=== PATIENT | male | born 1995 | race Caucasian/White ===

== ENCOUNTER 2018-06-04 11:42 | Emergency (ER) | payer MEDICAID ==
[2018-06-04 11:48] VITALS: RESP 18
[2018-06-04 11:52] VITALS: BMI 28.5
--- NOTE | 2018-06-04 11:59 | C.PDOC ---
History Of Present Illness 22 year old male is brought to the ED by ambulance for evaluation after patient had episodes of vomiting while at outpatient psychiatric counseling prior to arrival. Patient states he feels better. He denies fever, chills, abdominal pain. Time Seen by Provider: 06/04/18 11:43 Chief Complaint (Nursing): Abdominal Pain History Per: Patient History/Exam Limitations: no limitations Onset/Duration Of Symptoms: Mins Current Symptoms Are (Timing): Better Quality Of Discomfort: denies: "Pain" Associated Symptoms: Nausea, Vomiting. denies: Fever, Chills Past Medical History Reviewed: Historical Data, Nursing Documentation, Vital Signs Vital Signs: Last Vital Signs Temp 97.9 F 06/04/18 11:43 Pulse 87 06/04/18 11:43 Resp 18 06/04/18 11:43 BP 101/69 06/04/18 11:43 Pulse Ox 98 06/04/18 11:43 - Medical History PMH: Anxiety, HTN, Schizophrenia Denies: Diabetes, Hepatitis, HIV, Seizures, Sexually Transmitted Disease Surgical History: No Surg Hx - [facility] Procedures INDIVID PSYCHOTHERAP NEC (07/29/14) INJECT/INFUSE NEC (09/22/13) OTHER GROUP THERAPY (07/29/14) PSYCHIA INTERV/EVAL NEC (10/17/14) PSYCHIAT DRUG THERAP NEC (01/28/15) Family History: States: Unknown Family Hx - Social History Hx Tobacco Use: No Hx Alcohol Use: No Hx Substance Use: No (occ. marijuana) - Immunization History Hx Tetanus Toxoid Vaccination: No Hx Influenza Vaccination: No Hx Pneumococcal Vaccination: No Review Of Systems Constitutional: Negative for: Fever, Chills Gastrointestinal: Positive for: Vomiting. Negative for: Abdominal Pain Physical Exam - Physical Exam Appears: Non-toxic, No Acute Distress Skin: Normal Color, Warm, Dry Head: Atraumatic, Normacephalic Eye(s): bilateral: Normal Inspection Oral Mucosa: Moist Neck: Supple Chest: Symmetrical, No Deformity, No Tenderness Cardiovascular: Rhythm Regular, No Murmur Respiratory: Normal Breath Sounds, No Rales, No Rhonchi, No Wheezing Gastrointestinal/Abdominal: Soft, No Tenderness, No Guarding, No Rebound Extremity: Normal ROM, Capillary Refill (less than 2 seconds ) Neurological/Psych: Oriented x3, Normal Speech, Normal Cognition ED Course And Treatment O2 Sat by Pulse Oximetry: 98 (on RA) Pulse Ox Interpretation: Normal Progress Note: Zofran PO given. On reassessment, patient is resting comfortably, showing no signs of distress and reports an improvement in his symptoms. Patient is stable for discharge and is advised to follow up with his PMD within 1-2 days for further evaluation. Advised to return to the ED if symptoms persist or worsen. Reassessment Condition: Improved Disposition Counseled Patient/Family Regarding: Diagnosis - Disposition [facility] [Outside] Disposition: HOME/ ROUTINE Disposition Time: 12:50 Condition: STABLE Additional Instructions: Follow up with PMD for further evaluation Instructions: Nausea and Vomiting, Adult (DC) Forms: [facility] (Sinhala) - POA Present On Arrival: None - Clinical Impression Clinical Impression: Vomiting
[2018-06-04 13:12] VITALS: BP 122/78; TEMP 97.8
[2018-06-04 13:14] VITALS: PULSE 81
[2018-06-04 14:14] VITALS: O2SAT 98
== END 2018-06-04 14:01 | disposition home or self-care (01) ==
LOC: C.ER 11:42
DX: R11.10 Vomiting, unspecified (principal)

== ENCOUNTER 2018-08-04 10:01 | Inpatient (IN) | payer MEDICAID ==
[2018-08-04 10:01] VITALS: BMI 28.5
--- NOTE | 2018-08-04 10:06 | C.PDOC ---
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 Patient lives in a half-way and is compliant with his medication. He states that he normally hears voices once in a while, but is now hearing them more than usual. Patient denies suicidal and homicidal ideation. 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) History/Exam Limitations: clinical condition Onset/Duration Of Symptoms: Days Current Symptoms Are (Timing): Still Present Associated Symptoms: denies: Suicidal Thoughts, Other (homicidal ideation) Additional History Per: Patient, EMS <Gayathri Wetzel - Last Filed: 08/04/18 12:38> <Makayla Brand - Last Filed: 08/12/18 21:32> Time Seen by Provider: 08/04/18 10:05 Past Medical History Reviewed: Historical Data, Nursing Documentation, Vital Signs - Medical History PMH: Anxiety, HTN, Hyperlipidemia, Schizophrenia Denies: Diabetes, Hepatitis, HIV, Seizures, Sexually Transmitted Disease Surgical History: No Surg Hx - [facility] Procedures INDIVID PSYCHOTHERAP NEC (07/29/14) INJECT/INFUSE NEC (09/22/13) OTHER GROUP THERAPY (07/29/14) PSYCHIA INTERV/EVAL NEC (10/17/14) PSYCHIAT DRUG THERAP NEC (01/28/15) Family History: States: Unknown Family Hx - Social History Hx Tobacco Use: No Hx Alcohol Use: No Hx Substance Use: No (occ. marijuana) - Immunization History Hx Tetanus Toxoid Vaccination: No Hx Influenza Vaccination: No Hx Pneumococcal Vaccination: No <Gayathri Wetzel - Last Filed: 08/04/18 12:38> Vital Signs: Last Vital Signs Temp 98.3 F 08/04/18 10:06 Pulse 98 H 08/04/18 10:06 Resp 18 08/04/18 10:06 BP 128/74 08/04/18 10:06 Pulse Ox 97 08/04/18 10:06 - [facility] Procedures INDIVID PSYCHOTHERAP NEC (07/29/14) INJECT/INFUSE NEC (09/22/13) OTHER GROUP THERAPY (07/29/14) PSYCHIA INTERV/EVAL NEC (10/17/14) PSYCHIAT DRUG THERAP NEC (01/28/15) <Makayla Brand - Last Filed: 08/12/18 21:32> Review Of Systems Constitutional: Negative for: Fever, Chills, Weakness Cardiovascular: Negative for: Chest Pain, Palpitations Respiratory: Negative for: Cough, Shortness of Breath Gastrointestinal: Negative for: Nausea, Vomiting, Diarrhea Musculoskeletal: Negative for: Back Pain Skin: Negative for: Rash Neurological: Negative for: Weakness, Numbness, Dizziness Psych: Positive for: Psychosis (hearing voices). Negative for: Suicidal ideation <Gayathri Wetzel - Last Filed: 08/04/18 12:38> Physical Exam - Physical Exam Appears: Well, Non-toxic, No Acute Distress Skin: Normal Color, Warm, Dry Head: Atraumatic, Normacephalic Neck: Normal ROM, Supple Chest: Symmetrical, No Deformity Cardiovascular: Rhythm Regular, No Murmur Respiratory: No Accessory Muscle Use, Other (NARD) Gastrointestinal/Abdominal: Soft, No Tenderness Extremity: Capillary Refill (<2 seconds) Extremity: Bilateral: Atraumatic, Normal Color And Temperature Pulses: Left Radial: Normal, Right Radial: Normal Neurological/Psych: Oriented x3, Normal Speech, Normal Cognition, Other (calm,cooperative, pleasant, no acute intoxication, no active hallucinations) <Gayathri Wetzel - Last Filed: 08/04/18 12:38> ED Course And Treatment Progress Note: 10:08: Crisis evaluation for patient was ordered. <Gayathri Wetzel - Last Filed: 08/04/18 12:38> - Laboratory Results Result Diagrams: 08/04/18 13:53 08/04/18 13:53 Lab Results: Total Bilirubin 0.3 mg/dL (0.2-1.3) 08/04/18 13:53 AST 35 U/L (17-59) 08/04/18 13:53 ALT 27 U/L (21-72) 08/04/18 13:53 Alkaline Phosphatase 93 U/L (38-126) 08/04/18 13:53 Total Protein 7.1 g/dL (6.3-8.3) 08/04/18 13:53 Albumin 4.1 g/dL (3.5-5.0) 08/04/18 13:53 Globulin 3.0 gm/dL (2.2-3.9) 08/04/18 13:53 Albumin/Globulin Ratio 1.4 (1.0-2.1) 08/04/18 13:53 Urine Color Straw (YELLOW) 08/04/18 13:53 Urine Clarity Hazy (Clear) 08/04/18 13:53 Urine pH 7.0 (5.0-8.0) 08/04/18 13:53 Ur Specific [place] 1.010 (1.003-1.030) 08/04/18 13:53 Urine Protein Negative mg/dL (NEGATIVE) 08/04/18 13:53 Urine Glucose (UA) Normal mg/dL (Normal) 08/04/18 13:53 Urine Ketones Negative mg/dL (NEGATIVE) 08/04/18 13:53 Urine Blood Negative (NEGATIVE) 08/04/18 13:53 Urine Nitrate Negative (NEGATIVE) 08/04/18 13:53 Urine Bilirubin Negative (NEGATIVE) 08/04/18 13:53 Urine Urobilinogen Normal mg/dL (0.2-1.0) 08/04/18 13:53 Ur Leukocyte Esterase Neg Luis Armando/uL (Negative) 08/04/18 13:53 Urine WBC (Auto) < 1 /hpf (0-5) 08/04/18 13:53 Progress Note: 3:00PM Patient medically cleared. Pending crisis. 3:30PM- Patient accepted by Dr. Foster for psychiatric admission for paranoid schizophrenia. <Makayla Brand - Last Filed: 08/12/18 21:32> Progress - Re-Evaluation Re-evaluation Note: 08/04/18 12:38 EXAM UNCH. D/W CRISIS, PT TO BE ADMITTED PARANOID SCHIZOPHRENIA AFTER MED CLEARANCE 08/04/18 12:38 LABS PENDING <Gayathri Wetzel - Last Filed: 08/04/18 12:38> Disposition - Disposition Disposition Time: 13:00 <Gayathri Wetzel - Last Filed: 08/04/18 12:38> - Disposition Disposition Time: 15:28 <Makayla Brand - Last Filed: 08/12/18 21:32> - Disposition Disposition: HOSPITALIZED Condition: STABLE - Clinical Impression Clinical Impression: Paranoid schizophrenia - Scribe Statement The provider has reviewed the documentation as recorded by the Scribe (Tasha Clark) All medical record entries made by the Scribe were at my direction and personally dictated by me. I have reviewed the chart and agree that the record accurately reflects my personal performance of the history, physical exam, medical decision making, and the department course for this patient. I have also personally directed, reviewed, and agree with the discharge instructions and disposition. <Gayathri Wetzel - Last Filed: 08/04/18 12:38> Physician Patient Turnover Patient Signed Over To: Makayla Brand Handoff Comments: LABS, DISPO <Gayathri Wetzel - Last Filed: 08/04/18 12:38>
[2018-08-04 13:57] LABS: BASO # 0.1 K/uL (0.0-0.2); EOS # 0.3 K/uL (0.0-0.7); EOS % 3.7 % (0.0-4.0); HEMOGLOBIN 14.4 g/dL (12.0-18.0); LYMPH # 2.3 K/uL (1.0-4.3); LYMPH % 30.5 % (20.0-40.0); MEAN CELL VOLUME 83.8 fL (80.0-94.0); MEAN CORPUSCULAR HEMOGLOBIN 28.1 pg (27.0-31.0); MEAN CORPUSCULAR HGB CONC 33.5 g/dL (33.0-37.0); MEAN PLATELET VOLUME 8.1 fL (7.2-11.7); MONO # 0.6 K/uL (0.0-0.8); MONO % 8.3 % (0.0-10.0); NEUT # 4.3 K/uL (1.8-7.0); NEUT % 56.5 % (50.0-75.0); NRBC % 0.1 % (0.0-2.0); RBC 5.13 Mil/uL (4.40-5.90); RED CELL DISTRIBUTION WIDTH 13.7 % (11.5-14.5); WHITE BLOOD COUNT 7.7 K/uL (4.8-10.8)
[2018-08-04 14:01] LABS: URINE BILIRUBIN NEGATIVE (NEGATIVE); URINE BLOOD NEGATIVE (NEGATIVE); URINE CLARITY Hazy (Clear); URINE COLOR Straw (YELLOW); URINE GLUCOSE (UA) NORMAL (Normal); URINE LEUKOCYTE ESTERASE NEG Leu/uL (Negative); URINE PROTEIN NEGATIVE (NEGATIVE); URINE UROBILINOGEN NORMAL mg/dL (0.2-1.0)
[2018-08-04 14:09] LABS: ALB/GLOB RATIO 1.4 (1.0-2.1); ALBUMIN 4.1 g/dL (3.5-5.0); ALT/SGPT 27 U/L (21-72); AST/SGOT 35 U/L (17-59); BLOOD UREA NITROGEN 17 mg/dL (9-20); CALCIUM 9.4 mg/dl (8.6-10.4); GFR NON-AFRICAN AMERICAN > 60
[2018-08-04 14:21] LABS: BARBITURATES, UR NEGATIVE (NEGATIVE); BENZODIAZEPINES, UR NEGATIVE (NEGATIVE); OPIATES, UR NEGATIVE (NEGATIVE); PHENCYCLIDINE, UR NEGATIVE (NEGATIVE)
--- NOTE | 2018-08-04 17:36 | PCM.BM ---
<Blossom Larkin - Last Filed: 08/04/18 17:33> Treatment Plan Problems - Problems identified on initial assessmt Command Auditory Hallucination Date Initiated: 08/04/18 Time Initiated: 17:34 Assessment reference: NA Status: Active Altered thought procee Date Initiated: 08/04/18 Time Initiated: 17:35 Assessment reference: NA Status: Active Social Isolation Date Initiated: 08/04/18 Time Initiated: 17:35 Assessment reference: NA Status: Active Treatment assets and liabiliti Patient Assests: cooperative, motivated, ADL independent, good support system - Milieu Protocol Maintain good personal hygiene: daily Encourage regular showers, daily Remind patient to perform daily oral care, daily Assist patient to perform ADL's Conduct patient checks and document Observation sheet: Q15 minutes (safety) Maintain personal safety: every shift Educate patient to report safety concerns to staff, every shift Monitor environment for contraband/sharps Medication safety: Monitor for expected outcome, potential side effects: every shift, Assess barriers to learning: every shift, Assess readiness for medication education: every shift <William Foster - Last Filed: 08/06/18 10:51> - Diagnosis (1) Schizoaffective disorder Status: Acute Interventions: 08/06/18 10:51 * Assess/adjust medications daily and /or as needed * See patient on an individual basis 7x/week to assess status of hallucinations * Discuss risks, benefits, side effects and alternatives of medications * <Kiara Viramontes - Last Filed: 08/06/18 11:42> Family Contact Family involvement: Famliy/SO not involved - Goals for Treatment Patient goals for treatment: "I want to go home." Discharge/Continuing Care - Education Needs Education Needs: Patient Medication, Patient Coping Skills - Discharge Discharge Criteria: Tolerates medication w/o severe side effects, Reduction of target symptoms Discharge to:: Intermediate - Treatment Team Participation Discussed with Family/SO: No Was Patient/Family/SO present at Treatment Team Meeting: Yes
[2018-08-04] MEDS: Propranolol 60 mg ER Cap PO SCH (22:23)
[2018-08-05] MEDS: Levothyroxine 50 MCG TAB PO SCH (07:03)
[2018-08-05] MEDS: Pantoprazole 40 mg EC Tab PO SCH ×2 (09:09→18:19)
[2018-08-05] MEDS: Propranolol 60 mg ER Cap PO SCH ×2 (09:10→18:19)
--- NOTE | 2018-08-05 10:16 | PCM.PSYCH ---
Initial Psychiatric Evaluation - Initial Psychiatric Evaluation Type of Admission: Voluntary Legal Status: Capacity Chief Complaint (in patient's own words): I was hearing voices.'' History of Present Illness and Precipitating Events: Patient is a 22y/o male, who came to the ED in a disorganized behavior and auditory hallucinations command type to hurt others. As per the chart patient has a long history of schizophrenia. He has history of multiple inpatient psychiatric hospitalizations he was last discharged from [facility] 4 months ago after staying there for almost 1-1/2-year. Patient reports that [facility]. As per the patient since 2 weeks he is constantly hearing voices telling him to hurt others. He informed the staff and he was sent to the [facility] [place] for further evaluation. He appeared very disorganized and internally preoccupied. He remained a poor historian and superficially cooperative but guarded about the details. He was paranoid and delusional during the interview. He reports of auditory hallucinations and paranoia. He reports at times irritability, agitation and racing thoughts. He also reports poor sleep. However he denies any drinking or any substance abuse. He denies any past history of suicidal ideation or any suicide attempt. Past medical history Hypertension Hypothyroidism Hypercholesterolemia Current Medications: Active Medications Generic Name Dose Route Start Last Admin Trade Name Freq PRN Reason Stop Dose Admin Clonazepam 0.5 mg 08/05/18 10:00 08/05/18 09:09 Klonopin PO 0.5 mg BID SANTY Administration Clozapine 200 mg 08/05/18 10:00 08/05/18 09:09 Clozaril PO 200 mg DAILY SANTY Administration Clozapine 300 mg 08/04/18 22:00 08/04/18 22:23 Clozaril PO 300 mg HS SANTY Administration Ezetimibe 10 mg 08/05/18 22:00 Zetia PO HS SANTY Hydroxyzine HCl 25 mg 08/04/18 18:40 Atarax PO Q6 PRN Anxiety Influenza Virus Vaccine 60 mcg 08/07/18 10:00 Flucelvax Quad 6020-0234 Syr IM 08/07/18 10:01 .ONCE ONE Levothyroxine Sodium 50 mcg 08/05/18 06:30 08/05/18 07:03 Synthroid PO 50 mcg DAILY@0630 SNATY Administration Pantoprazole Sodium 40 mg 08/05/18 10:00 08/05/18 09:09 Protonix Ec Tab PO 40 mg BID SANTY Administration Propranolol HCl 60 mg 08/04/18 21:45 08/05/18 09:10 Inderal La PO 60 mg BID SANTY Administration Rosuvastatin Calcium 5 mg 08/04/18 22:00 08/04/18 22:23 Crestor PO 5 mg HS SANTY Administration Trazodone HCl 50 mg 08/04/18 18:41 Desyrel PO HS PRN Insomnia Past Psychiatric History - Past Psychiatric History Previous Treatment History: Inpatient Pertinent Medical Hx (Current Medical&Sleep Prob, Allergies): Allergies Allergy/AdvReac Type Severity Reaction Status Date / Time No Known Allergies Allergy Verified 08/04/18 10:09 Clonazepam 0.5 mg PO ACD 08/04/18 Clozapine 200 mg PO BID 08/04/18 Divalproex [Depakote ER] 1,500 mg PO HS 08/04/18 Propranolol [Inderal LA] 80 mg PO BID 08/04/18 Review of Systems - Review of Systems All systems: reviewed and no additional remarkable complaints except - Psychiatric Psychiatric: Anxiety, Auditory Hallucinations, Irritability, Paranoia, Suicidal Ideation Mental Status Examination - Personal Presentation Personal Presentation: Looks stated age - Affect Affect: Constricted, Depressed - Motor Activity Motor Activity: Calm - Reliability in Providing Information Reliability in Providing Information: Poor, due to alteration in thoughts, Poor, due to altered mood - Speech Speech: Disorganized - Mood Mood: Depressed, Anxious - Formal Thought Process Formal Thought Process: Hallucinations, Delusions, Paranoia, Loosening of associations - Hallucinations/Delusions Hallucinations: Visual, Auditory Delusions: Persecution - Obsessions/Compulsions Obsessions: No Compulsions: No - Cognitive Functions Orientation: Person, Place, Situation, Time Sensorium: Alert Attention/Concentration: Attentive Abstract Thinking: [place] Estimate of Intelligence: Below average Judgement: Imparied, as evidence by: Poor judgement, Imparied, as evidence by: Lack of insight into illness - Risk Risk: Suicidal, Withdrawal, Diminished functioning - Strength & Assets Inventory Strength & Assets Inventory: Intelligence - Limitations Limitations: Living alone DSM 5 DX - DSM 5 DSM 5 Diagnosis: Schizoaffective disorder bipolar type - Recommended/Plan of Treatment Treatment Recommendations and Plan of Treatment: Schizoaffective disorder bipolar type Hypertension Hypothyroidism Hypercholesterolemia CBT Psycho education Supportive therapy and group therapy Continue Clozaril for psychosis Hold Depakote Hydroxyzine for anxiety Trazodone for insomnia Levothyroxine for hypothyroidism Klonopin for anxiety Propranolol for anxiety. - Smoking Cessation Smoking Cessation Initiated: No
[2018-08-06] MEDS: Levothyroxine 50 MCG TAB PO SCH (06:42)
[2018-08-06] MEDS: Pantoprazole 40 mg EC Tab PO SCH ×2 (10:33→17:01)
[2018-08-06] MEDS: Propranolol 60 mg ER Cap PO SCH ×2 (10:40→17:01)
--- NOTE | 2018-08-06 10:52 | PCM.PYCHPN ---
Psychiatric Progress Note - Psychiatric Progress Note Patient seen today, length of contact: 15 min Patient Chief Complaint: I was hearing voices.' Problems Identified/Issues Discussed: Patient was seen and evaluated, chart reviewed and discussed the staff. Patient remained disorganized, internally preoccupied. As per staff, he was found responding to internal stimuli. He reports irritability and agitation but he remained redirectable. He remained isolative and withdrawn and confined to his room. He is taking medication but denies any side effects. Supportive therapy was given Medication Change: Yes Medical Record Reviewed: Yes Mental Status Examination - Cognitive Function Orientation: Person, Place, Situation, Time Memory: Intact Attention: Poor Concentration: Poor Association: Loose Fund of Knowledge: Poor - Mood Mood: Anxious - Affect Affect: Broad - Speech Speech: Pressured - Formal Thought Process Formal Thought Process: Hallucinations, Delusions, Paranoia, Loosening of associations - Suicidal Ideation Suicidal Ideation: No - Homicidal Ideation Homicidal Ideation: No Goal/Treatment Plan - Goal/Treatment Plan Need for Continued Stay: Remain at risks for inpatient hospitalization Progress Toward Problem(s) and Goals/Treatment Plan: Schizoaffective disorder bipolar type Hypertension Hypothyroidism Hypercholesterolemia CBT Psycho education Supportive therapy and group therapy Continue Clozaril for psychosis Hold Depakote Hydroxyzine for anxiety Trazodone for insomnia Levothyroxine for hypothyroidism Klonopin for anxiety Propranolol for anxiety. - Smoking Cessation Smoking Cessation Initiated: No
[2018-08-07] MEDS: Levothyroxine 50 MCG TAB PO SCH (06:36)
[2018-08-07] MEDS ORDERED: Influenza Vaccine 60 mcg/0.5 mL SYR (4YR UP) IM ONE (10:00)
[2018-08-07] MEDS: Propranolol 60 mg ER Cap PO SCH ×2 (10:04→18:26)
[2018-08-07] MEDS: Pantoprazole 40 mg EC Tab PO SCH ×2 (10:04→17:45)
[2018-08-08 06:07] VITALS: RESP 20
[2018-08-08] MEDS: Levothyroxine 50 MCG TAB PO SCH (06:40)
[2018-08-08] MEDS: Propranolol 60 mg ER Cap PO SCH ×2 (09:23→17:23)
[2018-08-08] MEDS: Pantoprazole 40 mg EC Tab PO SCH ×2 (09:23→17:21)
[2018-08-09] MEDS: Levothyroxine 50 MCG TAB PO SCH (06:42)
[2018-08-09] MEDS: Pantoprazole 40 mg EC Tab PO SCH ×2 (10:10→17:29)
[2018-08-09] MEDS: Propranolol 60 mg ER Cap PO SCH ×2 (10:11→17:09)
[2018-08-10] MEDS: Levothyroxine 50 MCG TAB PO SCH (05:58)
[2018-08-10 06:44] VITALS: TEMP 98.2; O2SAT 97
[2018-08-10] MEDS: Pantoprazole 40 mg EC Tab PO SCH ×2 (09:45→18:03)
[2018-08-10] MEDS: Propranolol 60 mg ER Cap PO SCH ×2 (09:49→18:02)
--- NOTE | 2018-08-10 10:09 | PCM.PYCHDC ---
Mental Status Examination - Mental Status Examination Orientation: Person, Place, Situation, Time Memory: Intact Mood: Neutral Affect: Constricted Speech: Soft Attention: WNL Concentration: WNL Association: WNL Fund of Knowledge: WNL Formal Thought Process: No Impairment Description of patient's judgement and insight: good, fair Psychotic Thoughts and Behaviors: denies any AVH Suicidal Ideation: No Current Homicidal Ideation?: No Discharge Summary - Discharge Note Reason for Hospitalization: Patient is a 22y/o male, who came to the ED in a disorganized behavior and auditory hallucinations command type to hurt others. As per the chart patient has a long history of schizophrenia. He has history of multiple inpatient psychiatric hospitalizations he was last discharged from [facility] 4 months ago after staying there for almost 1-1/2-year. Patient reports that [facility]. As per the patient since 2 weeks he is constantly hearing voices telling him to hurt others. He informed the staff and he was sent to the [facility] for further evaluation. He appeared very disorganized and internally preoccupied. He remained a poor historian and superficially cooperative but guarded about the details. He was paranoid and delusional during the interview. He reports of auditory hallucinations and paranoia. He reports at times irritability, agitation and racing thoughts. He also reports poor sleep. However he denies any drinking or any substance abuse. He denies any past history of suicidal ideation or any suicide attempt. Consultations:: List each consultation separately and include: 1. Reason for request. 2. Findings. 3. Follow-up Summary of Hospital Course include:: 1. Description of specific treatment plan utilized for patients during their course of treatmen. 2. Summarize the time- course for resolution of acute symptoms and/or regressed behaviors. 3. Describe issues identified and worked on during hospitalization. 4. Describe medication utilized. 5. Describe medical problems identified and treated. 6. Reassessment of suicide risk Summary of Hospital Course: Patient is a 22y/o male, who came to the ED in a disorganized behavior and auditory hallucinations command type to hurt others. As per the chart patient has a long history of schizophrenia. He has history of multiple inpatient psychiatric hospitalizations he was last discharged from [facility] 4 months ago after staying there for almost 1-1/2-year. Patient reports that currently [facility] staying [facility]. As per the patient since 2 weeks he is constantly hearing voices telling him to hurt others. He informed the staff and he was sent to the [facility] for further evaluation. He appeared very disorganized and internally preoccupied. He remained a poor historian and superficially cooperative but guarded about the details. He was paranoid and delusional during the interview. He reports of auditory hallucinations and paranoia. He reports at times irritability, agitation and racing thoughts. He also reports poor sleep. However he denies any drinking or any substance abuse. He denies any past history of suicidal ideation or any barclay icide attempt. Past medical history Hypertension Hypothyroidism Hypercholesterolemia - Diagnosis (1) Schizoaffective disorder Current Visit: No Status: Acute - Final Diagnosis (DSM 5) Condition upon Discharge: STABLE DSM 5: Schizoaffective disorder bipolar type Hypertension Hypothyroidism Hypercholesterolemia Disposition: HOME/ ROUTINE Follow-up Treatment Plan: Schizoaffective disorder bipolar type Hypertension Hypothyroidism Hypercholesterolemia CBT Psycho education Supportive therapy and group therapy Continue Clozaril for psychosis Hold Depakote Hydroxyzine for anxiety Trazodone for insomnia Levothyroxine for hypothyroidism Klonopin for anxiety Propranolol for anxiety. Prescriptions/Medication Reconciliation: cloZAPine [Clozaril] 200 mg PO DAILY #30 tab cloZAPine [Clozaril] 300 mg PO HS #30 tab Gabapentin [Neurontin] 300 mg PO TID #90 cap Levothyroxine [Synthroid] 50 mcg PO DAILY@0630 #30 tab Pantoprazole [Protonix EC Tab] 40 mg PO BID #60 ect Rosuvastatin Calcium [Crestor] 5 mg PO HS #30 tab traZODone [Desyrel] 50 mg PO HS PRN #30 tab PRN Reason: Insomnia - Smoking Cessation Smoking Cessation Medication prescribed: No
[2018-08-10 16:08] VITALS: BP 128/73; PULSE 108
== END 2018-08-10 17:15 | disposition home or self-care (01) | DRG 430 ==
LOC: C.ER 10:01 → C.5E 15:28
PROVIDERS: ADMIT Psychiatry & Neurology Psychiatry; ATTEND Psychiatry & Neurology Psychiatry
PROC: GZ56ZZZ Individual Psychotherapy, Supportive (ICD-10-PCS; principal; 2018-08-04)
DX: F25.0 Schizoaffective disorder, bipolar type (principal); E03.9 Hypothyroidism, unspecified; E78.5 Hyperlipidemia, unspecified; I10 Essential (primary) hypertension